=== PATIENT | female | born 1955 | race Caucasian/White ===

== ENCOUNTER → 2016-06-13 | Outpatient (CLI) | payer BC, MEDICARE ==
[~2016-06-13] MED LIST: CYMBALTA30 MG PO; FLONASE 50 MCG/16 GM NOSE; GABAPENTIN300 MG PO; GLUCOPHAGE850 MG PO; HYDROCODON-ACE1 EAC4 PO; K-TAB ER20 MEQ PO; LASIX20 MG PO; LEVOTHROID (S125 MCG PO; MUCOMYST 20200 MG/M1 PO; MYRBETRIQ50 MG PO; NEURONTIN300 MG PO; PALIPERIDONE ER6 MG PO; PRINIVIL OR ZES10 MG PO; SINGULAIR10 MG PO; THERAGRAN-M1 TAB PO; XANAX0.5 MG PO
== END | disposition disaster alternative care site (69) ==
LOC: GRAD 08:45
DX: Z48.815 Encounter for surgical aftercare following surgery on the digestive system (principal); K22.8 Other specified diseases of esophagus; Z98.84 Bariatric surgery status